=== PATIENT | male | born 1980 | race African-American/Black ===

== ENCOUNTER 2017-06-24 11:54 | Emergency (ER) | payer OTHER ==
[2017-06-24 12:00] VITALS: BP 132/87; PULSE 80; TEMP 99; BMI 27.1
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
[2017-06-24] MEDS ORDERED: KETOROLAC TROMETHAMINE 60 MG/2 ML VIAL IM ONE (14:19)
[2017-06-24] MEDS ORDERED: KETOROLAC TROMETHAMINE 60 MG/2 ML VIAL ONE (14:20)
== END 2017-06-24 14:30 | disposition home or self-care (01) ==
LOC: FER 11:54
PROC: 3E0233Z Introduction of Anti-inflammatory into Muscle, Percutaneous Approach (ICD-10-PCS; principal; 2017-06-24)
DX: S39.012A Strain of muscle, fascia and tendon of lower back, initial encounter (principal); V43.62XA Car passenger injured in collision with other type car in traffic accident, initial encounter; Y93.89 Activity, other specified; Y92.410 Unspecified street and highway as the place of occurrence of the external cause; F17.210 Nicotine dependence, cigarettes, uncomplicated
CPT/HCPCS: 72100-TC; 99282-25